=== PATIENT | male | born 1980 | race Asian ===

== ENCOUNTER 2017-04-19 23:39 | Emergency (ER) | payer OTHER ==
--- NOTE | 2017-04-20 01:00 | ED ---
Skin Complaint - HPI Summary HPI Summary: 37 male presents with concerns for needing a rabies vaccination after being bite by a friend's pet dog while playing with him earlier today 04/19/17. Patient states he did not notice the "parviz" on his right index finger at cuticle until a few hours after. Skin did not break, no bleeding. Patient cleaned area with soap and water. Denies any other symptoms at this time. Is unsure if friend's dog has been immunized. Was reading stuff online and wanted to make sure he did not need rabies vaccination. - History of Current Complaint Chief Complaint: EDAnimalBite Time Seen by Provider: 04/20/17 00:06 Stated Complaint: DOG BITE Hx Obtained From: Patient Onset/Duration: Started Hours Ago Skin Exposure Onset/Duration: Hours Ago Current Severity: None Pain Intensity: 0 Pain Scale Used: 0-10 Numeric Skin Location: Other: - index finger, right hand Character: Redness Aggravating Symptom(s): Nothing Alleviating Symptom(s): Treatment [employer]: - cleaned with soap and water Related History: Possible Reaction to: Animal - dog - Allergy/Home Medications Allergies/Adverse Reactions: Allergies Allergy/AdvReac Type Severity Reaction Status Date / Time Erythromycin Allergy Stomach Verified 04/19/17 23:57 Cramps PMH/Surg Hx/FS Hx/Imm Hx Endocrine/Hematology History: Denies: Hx Diabetes, Hx Thyroid Disease Cardiovascular History: Denies: Hx Hypertension Respiratory History: Denies: Hx Asthma, Hx Chronic Obstructive Pulmonary Disease (COPD) GI History: Denies: Hx Ulcer - Surgical History Surgery Procedure, Year, and Place: none - Immunization History Immunizations Up to Date: Yes Infectious Disease History: No Infectious Disease History: Denies: Hx Clostridium Difficile, Hx Hepatitis, Hx Human Immunodeficiency Virus (HIV), Hx Shingles, Hx Tuberculosis, Hx Known/Suspected VRE, Hx Known/ Suspected VRSA, History Other Infectious Disease, Traveled Outside the [place] in Last 30 Days - Family History Known Family History: Positive: None - Social History Alcohol Use: Occasionally Substance Use Type: Reports: None Smoking Status (MU): Never Smoked Tobacco Review of Systems Constitutional: Negative Cardiovascular: Negative Respiratory: Negative Musculoskeletal: Negative Positive: Other - redness to index finger, cuticle All Other Systems Reviewed And Are Negative: Yes Physical Exam Triage Information Reviewed: Yes Vital Signs On Initial Exam: Initial Vitals Temp Pulse Resp BP Pulse Ox 98 F 64 18 126/72 99 04/19/17 23:54 04/19/17 23:54 04/19/17 23:54 04/19/17 23:54 04/19/17 23:54 Vital Signs Reviewed: Yes Appearance: Positive: Well-Appearing, No Pain Distress, Well-Nourished Skin: Positive: Warm, Skin Color Reflects Adequate Perfusion, Dry, Other - no sign of infection, no edema, no open wounds or laceration, minimal erythema to right index finger cuticle, pinpoint in size. appears to be more of a scrape. Negative: Cyanosis @ Head/Face: Positive: Normal Head/Face Inspection Eyes: Positive: Normal, Conjunctiva Clear ENT: Positive: Normal ENT inspection, Hearing grossly normal Neck: Positive: Supple, Nontender Respiratory/Lung Sounds: Positive: Clear to Auscultation, Breath Sounds Present. Negative: Rales, Rhonchi, Wheezes Cardiovascular: Positive: Normal, RRR, Pulses are Symmetrical in both Upper and Lower Extremities Bowel Sounds: Positive: Present Musculoskeletal: Positive: Normal, Strength/ROM Intact Neurological: Positive: Normal, Sensory/Motor Intact, Alert, Oriented to Person Place, Time, CN Intact II-III, Reflexes Intact, NV Bundle Intact Distally, Normal Gait Psychiatric: Positive: Normal AVPU Assessment: Alert - [place] Coma Scale Coma Scale Total: 15 Diagnostics - Vital Signs Vital Signs Temp Pulse Resp BP Pulse Ox 04/19/17 23:54 98 F 64 18 126/72 99 - Laboratory Lab Statement: Any lab studies that have been ordered have been reviewed, and results considered in the medical decision making process. Course/Dx - Course Course Of Treatment: patient was educated on rabies. also reassured he should not be worried for rabies at this time. did not appear to break skin. was encouraged to check with friend to see if pet has been immunized. follow up with pcp or return if new symptoms develop. aware of worsening signs and symptoms. - Differential Diagnoses - Skin Complaint Differential Diagnoses: Cellulitis, Contact Dermatitis, Other - Diagnoses Provider Diagnoses: Encounter for medical screening examination, Erythema of finger Discharge - Discharge Plan Condition: Stable Disposition: HOME Referrals: [facility] [Primary Care Provider] - [facility] [Outside] Additional Instructions: Continue washing wound with soap and water. Apply triple antibiotic ointment, Watch for signs of infection. Check with your friend to see if pet has been immunized and follow up with pet control if dog has not. If your concerned for rabies, as pet as not been immunized, please seek medical attention to be tested and immunized. Follow up with pcp.
[2017-04-20 01:16] VITALS: BP 133/80
== END 2017-04-20 01:14 | disposition home or self-care (01) ==
LOC: ED 23:39
DX: L53.9 Erythematous condition, unspecified (principal); S60.410A Abrasion of right index finger, initial encounter; Z00.00 Encounter for general adult medical examination without abnormal findings; W54.0XXA Bitten by dog, initial encounter; Y93.9 Activity, unspecified; Y92.9 Unspecified place or not applicable; Y99.9 Unspecified external cause status
CPT/HCPCS: 99282

== ENCOUNTER 2021-12-14 21:15 | Observation (INO) ==
[2021-12-14 22:27] LABS: ABS Lymphocytes 1.1 10^3/ul (1.0-4.8); ABS Monocytes 0.6 10^3/ul (0-0.8); ABS Neutrophils 10.3 10^3/ul (1.5-7.7); Eosinophil % 0.3 %; Hematocrit 41 % (42-52); Hemoglobin 14.3 g/dL (14.0-18.0); Lymphocyte % 9.4 %; Mean Corpuscular HGB Conc 35 g/dL (31-36); Mean Corpuscular Hemoglobin 33 pg (27-31); Mean Corpuscular Volume 95 fL (80-94); Mean Platelet Volume 7.8 fL (7.4-10.4); Platelet Count 202 10^3/uL (150-450); Red Blood Count 4.31 10^6 /uL (4.18-5.48); Red Cell Distribution Width 13 % (10-15); White Blood Count 12.1 10^3/uL (3.5-10.8)
[2021-12-14 22:45] LABS: ALT 25 U/L (7-52); Albumin 4.5 g/dL (3.2-5.2); Albumin/Globulin Ratio 1.5 (1-3); Alkaline Phosphatase 71 U/L (35-149); Blood Urea Nitrogen 23 mg/dL (6-24); C Reactive Protein 2.39 mg/L (<8.01); CO2 Carbon Dioxide 28 mmol/L (22-32); Calcium 8.9 mg/dL (8.6-10.3); Chloride 103 mmol/L (101-111); Globulin 3.1 g/dL (2-4); Glucose 137 mg/dL (70-100); Lipase 23 U/L (11.0-82.0); Sodium 138 mmol/L (135-145); Total Protein 7.6 g/dL (6.4-8.9); eGFR CKD-EPI 78.9 (>60)
[2021-12-14 22:47] LABS: AST 50 U/L (13-39); Anion Gap 7 mmol/L (2-11); Potassium 3.8 mmol/L (3.5-5.0)
[2021-12-14] MEDS ORDERED: NS 0.9% 1000 ml BAG 1,000 ML IV ONE (22:49)
[2021-12-14 22:52] LABS: HCG Pregnancy < 0.60 mIU/mL
[2021-12-14] MEDS ORDERED: Iohexol 300 (CONTRAST) 10 ML SDV IV ONE (23:13)
[2021-12-15] MEDS ORDERED: Piperacillin/Tazobac ADVAN 3.375 GM in NS 0.9% 100 ml BAG 100 ML IV ONE (00:23)
[2021-12-15 00:38] LABS: Urine Appearance Clear; Urine Color Yellow; Urine pH 5 (5-9)
[2021-12-15] MEDS ORDERED: Ondansetron 4 mg VIAL 2 MG/ML 2 ml VIAL IV ONE (00:38)
[2021-12-15 00:39] LABS: Urine Ketones Negative (Negative); Urine Protein Negative (Negative); Urine Urobilinogen Negative (Negative)
[2021-12-15 00:40] LABS: Urine Bilirubin Negative (Negative); Urine Blood Negative (Negative); Urine Glucose Negative (Negative); Urine Nitrite Negative (Negative)
[2021-12-15] MEDS ORDERED: Morphine 2 MG/ML SYRINGE IV PRN (01:35)
[2021-12-15] MEDS ORDERED: Metoclopramide 5 MG/ML VIAL (10 mg) IV PRN (01:36)
[2021-12-15] MEDS ORDERED: NS 0.9% 1,000 ML IV ONE (01:45)
[2021-12-15] MEDS ORDERED: Zosyn per Pharmacy NOTE FOLLOW UP PRN (03:43)
[2021-12-15] MEDS ORDERED: ZOSYN 3.375 GM Q8H per EXTENDED INFUSION IV SCH (04:00)
[2021-12-15] MEDS ORDERED: Bupivacaine 0.25% SDV 30 ML ONE (07:40)
[2021-12-15] MEDS ORDERED: Lidocaine 1% w EPI 1:200,000 SDV 30 ML VIAL ONE (07:40)
[2021-12-15] MEDS ORDERED: Famotidine IV 10 MG/ML 2 ml VIAL (20 mg) IV ONE (07:45)
[2021-12-15] MEDS ORDERED: Ondansetron 4 mg VIAL 2 MG/ML 2 ml VIAL ONE ×2 (07:50→07:58)
[2021-12-15] MEDS ORDERED: Midazolam 2 mg/2 ml VIAL 1 mg/ml 2 ml VIAL (2 mg) ONE ×2 (07:50→07:59)
[2021-12-15] MEDS ORDERED: Lidocaine 2% PF 5 ML VIAL ONE (07:50)
[2021-12-15] MEDS ORDERED: Dexamethasone IV 4 MG/ML VIAL 1 ml VIAL ONE ×2 (07:50→07:58)
[2021-12-15] MEDS ORDERED: Rocuronium 50 mg VIAL 10 mg/ml 5 ml VIAL (50 mg) ONE ×2 (07:50→07:58)
[2021-12-15] MEDS ORDERED: Propofol 10 MG/ML 20 ML BTL ONE ×2 (07:50→07:58)
[2021-12-15] MEDS ORDERED: fentaNYL 250 mcg/5 ml 50 MCG/ML 5 ml VIAL (250 MCG) ONE (07:51)
[2021-12-15] MEDS ORDERED: fentaNYL 100 mcg/2 ml 50 MCG/ML VIAL ONE (07:59)
[2021-12-15] MEDS ORDERED: Lactated Ringers 1000 ml BAG 1,000 ML IV SCH (08:00)
[2021-12-15] MEDS ORDERED: Famotidine IV 10 MG/ML 2 ml VIAL (20 mg) ONE (08:05)
[2021-12-15] MEDS ORDERED: Naloxone 0.4 mg VIAL 0.4 mg/ml 1 ml VIAL IV PRN (09:07)
[2021-12-15] MEDS ORDERED: Ondansetron 4 mg VIAL 2 MG/ML 2 ml VIAL IV PRN (09:07)
[2021-12-15] MEDS ORDERED: fentaNYL 100 mcg/2 ml 50 MCG/ML VIAL IV PRN (09:07)
[2021-12-15 10:47] VITALS: BP 109/71
== END 2021-12-15 10:44 | disposition home or self-care (01) ==
LOC: ED 21:15 → SSU 12-15 01:02 → INTOOBSV 12-15 01:02
PROVIDERS: ADMIT Surgery; ATTEND Surgery